=== PATIENT | male | born 1965 | race Caucasian/White ===

== ENCOUNTER 2017-05-19 15:12 | Inpatient (IN) ==
[2017-05-19] MEDS ORDERED: ASPIRIN 81 MG CHEWABLE TABLET PO ONE (15:40)
[2017-05-19] MEDS ORDERED: NITROGLYCERIN 0.4 MG SUBLINGUAL TABLET SL PRN ×3 (15:40→18:20)
[2017-05-19] MEDS ORDERED: SALINE FLUSH 10ml SYRINGE IVF PRN (15:40)
--- NOTE | 2017-05-19 15:45 | Emergency Department Report ---
Chest Pain HPI - General Chief Complaint: Chest Pain <Himanshu Godoy - 05/20/17 07:13> Stated Complaint: soa,pain on left side <Himanshu Godoy - 05/20/17 07:13> Time Seen by Provider: 05/19/17 15:35 <Himanshu Godoy - 05/20/17 07:13> Source: patient <Haley Rashid 05/19/17 15:47> Mode of arrival: wheelchair <GayMagdaHaley Dusty 05/19/17 15:47> Limitations: no limitations <MohindershavonHaley 05/19/17 15:47> - History of Present Illness HPI narrative: Pt presents with left substernal chest pain for the last 2 days. Pain develops with exertion and resolves at rest. Pain goes into left shoulder and pt becomes short of breath. Denies nausea or vomiting, diaphoresis, . <Haley Rashid 05/19/17 15:47> MD complaint: chest pain <GayHaley R 05/19/17 15:47> Occurred At: other <GayHaley Dusty 05/19/17 15:47> Onset (ago): day(s) <Haley Rashid 05/19/17 15:47> Duration: intermittent, now resolved <Haley Rashid 05/19/17 15:47> Onset: during exertion <Haley Rashid 05/19/17 15:47> Pain location: substernal, left chest <Haley Rashid 05/19/17 15:47> Severity: moderate <Haley Rashid 05/19/17 15:47> Quality: aching, heaviness <Haley Rashid 05/19/17 15:47> Pain radiation: LUE <Haley Rashid 05/19/17 15:47> Relieving factors: rest <Haley Rashid 05/19/17 15:47> Exacerbating factors: exertion <Haley Rashid 05/19/17 15:47> Associated symptoms: dyspnea <Haley Rashid 05/19/17 15:47> - Related Data Home Medications Medication Instructions Recorded Confirmed Aspirin [Aspir 81] 81 mg PO DAILY #30 tab 12/31/15 05/19/17 Enalapril Maleate 10 mg PO DAILY #0 tab 12/31/15 05/19/17 Insulin Glargine,Hum.rec.anlog 41 unit SQ AMI #0 12/31/15 05/19/17 [[place] Solostar] Insulin Aspart [NovoLOG] 13 unit SQ WB 05/19/17 05/19/17 Insulin Aspart [NovoLOG] 14 unit SQ WL 05/19/17 05/19/17 Insulin Aspart [NovoLOG] 16 unit SQ WS 05/19/17 05/19/17 Loratadine [Claritin] 10 mg PO DAILY 05/19/17 05/19/17 Pravastatin [Pravachol] 20 mg PO DAILY 05/19/17 05/19/17 <Himanshu Godoy Q - 05/20/17 07:13> Allergies Allergy/AdvReac Type Severity Reaction Status Date / Time insulin degludec Allergy Unknown HIVES Verified 05/19/17 15:24 Iodinated Contrast- Oral and Allergy Unknown RASH Verified 05/19/17 15:24 IV Dye sulfamethoxazole AdvReac rash/itchin Verified 05/19/17 15:24 [From Bactrim] g trimethoprim [From Bactrim] AdvReac rash/itchin Verified 05/19/17 15:24 g <Himanshu Godoy Q - 05/20/17 07:13> Review of Systems All systems: reviewed and negative except as stated <Haley Rashid - 15:47> Cardiovascular: Reports: as per HPI <Haley Rashid - 05/19/17 15:47> Respiratory: Reports: as per HPI <Haley Rashid - 05/19/17 15:47> Gastrointestinal: Reports: as per HPI <Haley Rashid - 05/19/17 15:47> [facility] Patient Stated Medical History Angina Yes Hypertension Yes Myocardial Infarction Yes Diabetes Mellitus Type 1 Yes Hx Benign Prostatic Yes: prostastitis Hyperplasia Other Infectious Yes: [facility] Medical History Non-STEMI (non-ST elevated myocardial infarction) (Acute Medical) Essential (primary) hypertension (Acute Medical) Type 2 diabetes mellitus without complications (Acute Medical) Mixed hyperlipidemia (Acute Medical) Type 1 diabetes (Chronic Medical) <JayneKate levyn Q - 05/20/17 07:13> Family History: Family History Mother HTN (hypertension) Father HTN (hypertension) <Himanshu Godoy - 05/20/17 07:13> - Social History Smoking status: Never smoker <Haley Rashid 05/19/17 15:47> Physical Exam - Limitations Limitations: no limitations <Haley Rashid 05/19/17 15:47> - General General appearance: alert, in no apparent distress <Haley Rashid 05/19 15:47> - Normal Exams: Head:: Normocephalic without trauma <Haley Rashid 05/19/17 15:47> Neck:: Full range of motion, without adenopathy <Haley Rashid 15:47> Chest/Respirations:: Clear all tatum, with good airflow, and symmetry bilaterally <Haley Rashid 05/19/17 15:47> Cardiovascular:: Regular rate and rhythm, without murmur or gallop, Pulses 2+ all extremities, capillary refill, <2 seconds all extremities <Haley Rashid 05/19/17 15:47> Abdomen:: Bowel sounds positive, soft, non-tender, non-distended <Haley Rashid 05/19/17 15:47> Musculoskeletal:: No tenderness, or deformity noted, good range of motion, all extremities <Haley Rashid 05/19/17 15:47> Integumentary:: No rashes <Haley Rashid 05/19/17 15:47> Neurological:: Patient is alert, and oriented, cranial nerves, motor/sensory/ cerebellar, exams w/o gross deficits <Haley Rashid 05/19/17 15:47> Psychiatric:: Patient exhibits, appropriate attention, emotion and affect < Haley Rashid 05/19/17 15:47> Course Vital Signs Temperature 98.3 F 05/19/17 15:24 Pulse Rate 86 05/19/17 15:24 Respiratory Rate 16 05/19/17 15:24 Blood Pressure 145/80 H 05/19/17 15:24 Pulse Oximetry 98 05/19/17 15:24 Temperature 98.0 F 05/20/17 04:00 Pulse Rate 90 05/20/17 04:00 Respiratory Rate 16 05/20/17 04:00 Blood Pressure 126/66 05/20/17 04:00 Pulse Oximetry 96 05/20/17 04:00 <JayneHimanshu Q - 05/20/17 07:13> Chest Pain - MDM Narrative Medical decision making narrative: Patient with elevated troponin. Contacted Dr. Craven, he will come and evaluate patient in the emergency room <JayneHimasnhu levy Q - 05/20/17 07:13> Lab, X ray, and EKG reviewed. Dr Lazo notified of findings pt to be an admission. Findings discussed with pt and his . Multiple questions answered. Pt currently verbalizes understanding <Haley Rashid - 05/19/17 16:49> - Differential Diagnosis Likely: stable angina, unstable angina pectoris, atypical chest pain, chest pain <Haley Rashid - 05/19/17 15:47> - Lab Data Attestation: I reviewed the patient's lab results. <Haley Rashid - 05/19 16:49> Result diagrams: 05/20/17 04:31 05/20/17 04:31 <Himanshu Godoy - 05/20/17 07:13> Lab Results 05/19/17 05/19/17 05/19/17 Range/Units 15:39 15:39 19:18 WBC 7.9 (4.5-11.0) T/MM3 RBC 4.42 L (4.50-5.90) M/MM3 Hgb 13.7 (13.5-17.5) GM/DL Hct 40.5 L (41-53) % MCV 91.6 (80-100) UM3 MCH 31.0 (26-34) UUG MCHC 33.8 (31-37) GM/DL RDW Std Deviation 39.0 (36.9-50.2) FL Plt Count 267 (130-400) T/MM3 MPV 8.8 L (9.4-12.4) UM3 Immature Gran % (Auto) 0.3 (0.0-0.5) % Neut % (Auto) 62.3 (33-66) % Lymph % (Auto) 26.4 (23-45) % [place] % (Auto) 8.6 (0-9.0) % Eos % (Auto) 2.1 (0-4) % Baso % (Auto) 0.3 (0-2) % Neut # (Auto) 4.9 (1.8-7.7) T/MM3 Lymph # (Auto) 2.1 (1-4.8) T/MM3 [place] # (Auto) 0.7 (0-0.8) T/MM3 Eos # (Auto) 0.2 (0-0.5) T/MM3 Baso # (Auto) 0.0 (0-0.2) T/MM3 Abs Immat Gran (auto) 0.02 (0.00-0.03) T/MM3 Neutrophils % (Manual) (33-66) % Band Neutrophils % (0-6) % Lymphocytes % (Manual) (23-45) % Monocytes % (Manual) (0-9.0) % Neutrophils # (Manual) (1.8-7.7) T/MM3 Band Neutrophils # T/MM3 Lymphocytes # (Manual) (1-4.8) T/MM3 Monocytes # (Manual) (0-0.8) T/MM3 RBC Morph Comment Turbidity < 20 (0-20) Sodium 142 (134-144) MEQ/L Potassium 4.3 (3.6-5) MEQ/L Chloride 105 (98-107) MEQ/L Carbon Dioxide 27 (22-30) MEQ/L Anion Gap 10 (5-15) MEQ/L BUN 20.0 (9-20) MG/DL Creatinine 0.8 (0.8-1.5) MG/DL GFR Calculation 101 BUN/Creatinine Ratio 25 (6-26) RATIO Glucose 234 H (75-110) MG/DL Glucometer 220 (65-110) mg/dL Calculated Osmolality 284 H (261-280) MOSM/KG Calcium 9.1 (8.4-10.2) MG/DL Icterus Index < 2 (0-7) Troponin I 0.164 H (0-0.12) ng/ml B-Natriuretic Peptide 123 (0-175) pg/mL Triglycerides (40-160) MG/DL Cholesterol (132-199) MG/DL LDL Cholesterol, Calc (66-159) VLDL Cholesterol (0-28) MG/DL HDL Cholesterol (40-60) MG/DL Cholesterol/HDL Ratio (0-5.0) RATIO Specimen Hemolysis < 15 (0-25) 05/19/17 05/20/17 05/20/17 Range/Units 21:35 04:31 04:31 WBC 14.7 H D (4.5-11.0) T/MM3 RBC 4.60 (4.50-5.90) M/MM3 Hgb 14.4 (13.5-17.5) GM/DL Hct 41.6 (41-53) % MCV 90.4 (80-100) UM3 MCH 31.3 (26-34) UUG MCHC 34.6 (31-37) GM/DL RDW Std Deviation 38.4 (36.9-50.2) FL Plt Count 297 (130-400) T/MM3 MPV 9.2 L (9.4-12.4) UM3 Immature Gran % (Auto) Not performed (0.0-0.5) % Neut % (Auto) Not performed (33-66) % Lymph % (Auto) Not performed (23-45) % [place] % (Auto) Not performed (0-9.0) % Eos % (Auto) Not performed (0-4) % Baso % (Auto) Not performed (0-2) % Neut # (Auto) Not performed (1.8-7.7) T/MM3 Lymph # (Auto) Not performed (1-4.8) T/MM3 [place] # (Auto) Not performed (0-0.8) T/MM3 Eos # (Auto) Not performed (0-0.5) T/MM3 Baso # (Auto) Not performed (0-0.2) T/MM3 Abs Immat Gran (auto) Not performed (0.00-0.03) T/MM3 Neutrophils % (Manual) 87.0 H (33-66) % Band Neutrophils % 5.0 (0-6) % Lymphocytes % (Manual) 4.0 L (23-45) % Monocytes % (Manual) 4.0 (0-9.0) % Neutrophils # (Manual) 12.8 H (1.8-7.7) T/MM3 Band Neutrophils # 0.7 T/MM3 Lymphocytes # (Manual) 0.6 L (1-4.8) T/MM3 Monocytes # (Manual) 0.6 (0-0.8) T/MM3 RBC Morph Comment Normal Turbidity < 20 (0-20) Sodium 140 (134-144) MEQ/L Potassium 4.3 (3.6-5) MEQ/L Chloride 106 (98-107) MEQ/L Carbon Dioxide 24 (22-30) MEQ/L Anion Gap 10 (5-15) MEQ/L BUN 16.0 (9-20) MG/DL Creatinine 0.7 L (0.8-1.5) MG/DL GFR Calculation 118 BUN/Creatinine Ratio 23 (6-26) RATIO Glucose 277 H (75-110) MG/DL Glucometer 196 (65-110) mg/dL Calculated Osmolality 280 (261-280) MOSM/KG Calcium 9.0 (8.4-10.2) MG/DL Icterus Index < 2 (0-7) Troponin I (0-0.12) ng/ml B-Natriuretic Peptide (0-175) pg/mL Triglycerides 44 (40-160) MG/DL Cholesterol 180 (132-199) MG/DL LDL Cholesterol, Calc 121.2 (66-159) VLDL Cholesterol 8.8 (0-28) MG/DL HDL Cholesterol 50 (40-60) MG/DL Cholesterol/HDL Ratio 3.6 (0-5.0) RATIO Specimen Hemolysis < 15 (0-25) <Himanshu Godoy Q - 05/20/17 07:13> Lab Results 05/19/17 05/19/17 05/19/17 Range/Units 15:39 15:39 19:18 WBC 7.9 (4.5-11.0) T/MM3 RBC 4.42 L (4.50-5.90) M/MM3 Hgb 13.7 (13.5-17.5) GM/DL Hct 40.5 L (41-53) % MCV 91.6 (80-100) UM3 MCH 31.0 (26-34) UUG MCHC 33.8 (31-37) GM/DL RDW Std Deviation 39.0 (36.9-50.2) FL Plt Count 267 (130-400) T/MM3 MPV 8.8 L (9.4-12.4) UM3 Immature Gran % (Auto) 0.3 (0.0-0.5) % Neut % (Auto) 62.3 (33-66) % Lymph % (Auto) 26.4 (23-45) % [place] % (Auto) 8.6 (0-9.0) % Eos % (Auto) 2.1 (0-4) % Baso % (Auto) 0.3 (0-2) % Neut # (Auto) 4.9 (1.8-7.7) T/MM3 Lymph # (Auto) 2.1 (1-4.8) T/MM3 [place] # (Auto) 0.7 (0-0.8) T/MM3 Eos # (Auto) 0.2 (0-0.5) T/MM3 Baso # (Auto) 0.0 (0-0.2) T/MM3 Abs Immat Gran (auto) 0.02 (0.00-0.03) T/MM3 Neutrophils % (Manual) (33-66) % Band Neutrophils % (0-6) % Lymphocytes % (Manual) (23-45) % Monocytes % (Manual) (0-9.0) % Neutrophils # (Manual) (1.8-7.7) T/MM3 Band Neutrophils # T/MM3 Lymphocytes # (Manual) (1-4.8) T/MM3 Monocytes # (Manual) (0-0.8) T/MM3 RBC Morph Comment Turbidity < 20 (0-20) Sodium 142 (134-144) MEQ/L Potassium 4.3 (3.6-5) MEQ/L Chloride 105 (98-107) MEQ/L Carbon Dioxide 27 (22-30) MEQ/L Anion Gap 10 (5-15) MEQ/L BUN 20.0 (9-20) MG/DL Creatinine 0.8 (0.8-1.5) MG/DL GFR Calculation 101 BUN/Creatinine Ratio 25 (6-26) RATIO Glucose 234 H (75-110) MG/DL Glucometer 220 (65-110) mg/dL Calculated Osmolality 284 H (261-280) MOSM/KG Calcium 9.1 (8.4-10.2) MG/DL Icterus Index < 2 (0-7) Troponin I 0.164 H (0-0.12) ng/ml B-Natriuretic Peptide 123 (0-175) pg/mL Triglycerides (40-160) MG/DL Cholesterol (132-199) MG/DL LDL Cholesterol, Calc (66-159) VLDL Cholesterol (0-28) MG/DL HDL Cholesterol (40-60) MG/DL Cholesterol/HDL Ratio (0-5.0) RATIO Specimen Hemolysis < 15 (0-25) 05/19/17 05/20/17 05/20/17 Range/Units 21:35 04:31 04:31 WBC 14.7 H D (4.5-11.0) T/MM3 RBC 4.60 (4.50-5.90) M/MM3 Hgb 14.4 (13.5-17.5) GM/DL Hct 41.6 (41-53) % MCV 90.4 (80-100) UM3 MCH 31.3 (26-34) UUG MCHC 34.6 (31-37) GM/DL RDW Std Deviation 38.4 (36.9-50.2) FL Plt Count 297 (130-400) T/MM3 MPV 9.2 L (9.4-12.4) UM3 Immature Gran % (Auto) Not performed (0.0-0.5) % Neut % (Auto) Not performed (33-66) % Lymph % (Auto) Not performed (23-45) % [place] % (Auto) Not performed (0-9.0) % Eos % (Auto) Not performed (0-4) % Baso % (Auto) Not performed (0-2) % Neut # (Auto) Not performed (1.8-7.7) T/MM3 Lymph # (Auto) Not performed (1-4.8) T/MM3 [place] # (Auto) Not performed (0-0.8) T/MM3 Eos # (Auto) Not performed (0-0.5) T/MM3 Baso # (Auto) Not performed (0-0.2) T/MM3 Abs Immat Gran (auto) Not performed (0.00-0.03) T/MM3 Neutrophils % (Manual) 87.0 H (33-66) % Band Neutrophils % 5.0 (0-6) % Lymphocytes % (Manual) 4.0 L (23-45) % Monocytes % (Manual) 4.0 (0-9.0) % Neutrophils # (Manual) 12.8 H (1.8-7.7) T/MM3 Band Neutrophils # 0.7 T/MM3 Lymphocytes # (Manual) 0.6 L (1-4.8) T/MM3 Monocytes # (Manual) 0.6 (0-0.8) T/MM3 RBC Morph Comment Normal Turbidity < 20 (0-20) Sodium 140 (134-144) MEQ/L Potassium 4.3 (3.6-5) MEQ/L Chloride 106 (98-107) MEQ/L Carbon Dioxide 24 (22-30) MEQ/L Anion Gap 10 (5-15) MEQ/L BUN 16.0 (9-20) MG/DL Creatinine 0.7 L (0.8-1.5) MG/DL GFR Calculation 118 BUN/Creatinine Ratio 23 (6-26) RATIO Glucose 277 H (75-110) MG/DL Glucometer 196 (65-110) mg/dL Calculated Osmolality 280 (261-280) MOSM/KG Calcium 9.0 (8.4-10.2) MG/DL Icterus Index < 2 (0-7) Troponin I (0-0.12) ng/ml B-Natriuretic Peptide (0-175) pg/mL Triglycerides 44 (40-160) MG/DL Cholesterol 180 (132-199) MG/DL LDL Cholesterol, Calc 121.2 (66-159) VLDL Cholesterol 8.8 (0-28) MG/DL HDL Cholesterol 50 (40-60) MG/DL Cholesterol/HDL Ratio 3.6 (0-5.0) RATIO Specimen Hemolysis < 15 (0-25) <Haley Rashid - 05/19/17 16:49> - Radiology Data Attestation: I reviewed the patient's radiology results. (per Dr Farrell) < Haley Rashid - 05/19/17 16:49> - EKG Data EKG #1 EKG attestation: Yes: I reviewed and interpreted this EKG. <Himanshu Godoy Q - 05/20/17 07:13> Yes: I reviewed and interpreted this EKG. <Haley Rashid 05/19/17 16:49> EKG shows normal: sinus rhythm <Haley Rashid 05/19/17 16:49> Rate: normal <Himanshu Godoy Q - 05/20/17 07:13> normal <Haley Rashid R - 05/19/17 16:49> Rhythm: NSR <JayneHimanshu Q - 05/20/17 07:13> NSR <Haley Rashid - 05/19/17 16:49> Robert/QRS: normal <JayneHimanshu 05/20/17 07:13> Interpretation: no acute changes <JayneHimanshu levy 05/20/17 07:13> Disposition Clinical Impression: Non-STEMI (non-ST elevated myocardial infarction) <Himanshu Godoy Q - 05/20/17 07:13> Disposition: 02 To [facility] [place] Acute Care <JayneHimanshu levy 05/20/17 07:13> Condition: Improved <JayneHimanshu 05/20/17 07:13> Prescriptions: No Action Enalapril Maleate 10 mg PO DAILY #0 tab Insulin Glargine,Hum.rec.anlog [[place] Solostar] 41 unit SQ AMI #0 Aspirin [Aspir 81] 81 mg PO DAILY #30 tab Insulin Aspart [NovoLOG] 13 unit SQ WB Loratadine [Claritin] 10 mg PO DAILY Insulin Aspart [NovoLOG] 16 unit SQ WS Insulin Aspart [NovoLOG] 14 unit SQ WL Pravastatin [Pravachol] 20 mg PO DAILY <Himanshu Godoy Q - 05/20/17 07:13> Time of Disposition: 16:49 <Haley Rashid - 05/19/17 16:49> - Seen By: midlevel and physician <Haley Rashid - 05/19/17 16:49>
--- OUTSIDE RECORDS SUMMARY | 2017-05-19 16:00 | External Medical Summary | Summary of Care ---
:1965 Author Name Deon Sánchez M.D. Address Unavailable Unavailable , Care Team Providers Name Role Phone Gonzalo Perkins Deon Unavailable Unavailable Mayela Barlow Unavailable Unavailable Functional Status Functional Status Health Issues Name Dates Details Functional status health issues are not documented Status: Cognitive Status Health Issues Name Dates Details Cognitive status health issues are not documented Status: Problems Name Dates Details BPPV (benign paroxysmal positional vertigo), right (386.11, H81.11) Status: Active Medications Name Dates Details Medication not documented Allergies and Adverse Reactions Name Dates Details Allergy history not documented Status: Procedures Procedure Dates Details History of Neuroplasty Decompression Median Nerve At Carpal Tunnel Procedures not documented Immunization Name Dates Details Immunizations not documented Family History Mother Name Dates Details Family history of hypertension (V17.49, Z82.49) Status: Active Father Name Dates Details Family history of hypertension (V17.49, Z82.49) Status: Active Social History Name Dates Details - Status: Smoking Status Name Dates Details Never smoker Vital Signs Date Test Result Details 30-Jan-2016 14:07 Temperature 98.3 f Status: Comments: Method: Heart Rate 95 /min Status: Comments: Location: ; Height 67.5 in Status: Weight 205 lb Status: Physical Findings 98 Status: Comments: O2 Saturation Body Mass Index Calculated 31.63 kg/m2 Status: Body Surface Area Calculated 2.05 m2 Status: Results Date Description Value Details Results not documented Plan of Care Name Dates Details Planned Observations Planned Goals not documented Instructions Name Dates Details Instructions not documented Encounters Appointment; Deon Sánchez M.D. On 30-Jan-2016 Encounter Diagnosis: Problem not documented 14:00
--- NOTE | 2017-05-19 16:15 | XRay Report ---
Indication: chest pain Procedure: XR chest 2V: Encounter: Initial Comparison: None Technique: PA and lateral radiographs of the chest were obtained. Findings: Lungs and airways: Normal lung volumes. No focal airspace consolidation. Normal pulmonary vasculature. Pleura: No pleural effusion or pneumothorax. Heart and mediastinum: The cardiomediastinal silhouette and great vessels are within normal limits. Osseous structures and soft tissues: No acute osseous abnormality is seen. Impression: No acute cardiopulmonary process. .
[2017-05-19] MEDS ORDERED: METHYLPREDNISOLONE SOD SUCC 125mg/2ml INJECTION IVP ONE (16:58)
[2017-05-19] MEDS ORDERED: DiphenhydrAMINE 50 MG/ML INJECTION IVP ONE (16:59)
[2017-05-19] MEDS ORDERED: DiphenhydrAMINE 50 MG/ML INJECTION ONE (17:05)
[2017-05-19] MEDS ORDERED: METHYLPREDNISOLONE SOD SUCC 125mg/2ml INJECTION ONE (17:05)
[2017-05-19] MEDS ORDERED: FentaNYL 100 MCG/2 ML INJECTION ONE (17:06)
[2017-05-19] MEDS ORDERED: MIDAZOLAM 2mg/2ml INJECTION ONE (17:06)
[2017-05-19] MEDS ORDERED: LIDOCAINE 1% (10mg/ml) 30ml SDV INJ ONE (17:06)
[2017-05-19] MEDS ORDERED: NS 1,000 ML ONE (17:15)
[2017-05-19] MEDS ORDERED: Verapamil 5 MG/2 ML VIAL ONE (17:26)
[2017-05-19] MEDS ORDERED: HEPARIN 1,000unit/ml INJECTION 10ml ONE (17:27)
[2017-05-19] MEDS ORDERED: NITROGLYCERIN 50MG INJECTION IV ONE (17:27)
--- NOTE | 2017-05-19 17:45 | Cardiology History & Physical ---
History of Present Illness Chief complaint: chest pain HPI: Lauri is a 52 year old male who presented to the ED with left substernal chest pain for the last 2 days. Pain develops with exertion and resolves at rest. Pain goes into left shoulder and he becomes short of breath. Denies nausea or vomiting, diaphoresis. Troponin resulted at 0.164, and EKG showed SR and was essentially normal. He was examined in the ED by Dr. Craven and it was felt that due to symptoms and elevated troponin we should proceed with left heart cath immediately. He denies recent illness, fever, cough, sore throat, dyspnea, palpitations, N/V/D, or dysuria. Review of Systems - Constitutional Constitutional: Absent: chills, fatigue, fever(s) - EENMT Eyes: Absent: change in vision Balance: Absent: vertigo Mouth/Throat: Absent: sore throat - Cardiovascular Cardiovascular: Present: chest pain. Absent: palpitations, syncope, dyspnea on exertion, orthopnea Rhythm: Absent: abnormal rhythm Vascular: Absent: pedal edema - Respiratory Respiratory: Absent: cough, dyspnea, dyspnea on exertion - Gastrointestinal Gastrointestinal: Absent: constipation, diarrhea, nausea, vomiting - Genitourinary Genitourinary: Absent: dysuria - Integumentary/Breasts Integumentary: Absent: rash - Neurological Neurological: Absent: dizziness - Endocrine Endocrine: Absent: palpitations PFSH Patient Stated Medical History Hypertension Yes Diabetes Mellitus Type 1 Yes Hx Benign Prostatic Yes: prostastitis Hyperplasia Other Infectious Yes: [facility] Medical History Non-STEMI (non-ST elevated myocardial infarction) (Acute Medical) Type 1 diabetes (Chronic Medical) Surgical History: none Family History: Family History Mother HTN (hypertension) Father HTN (hypertension) - Social History Smoking status: Never smoker Substance use type: does not use Alcohol intake frequency: does not drink Housing: house Household members: spouse Current occupational status: employed 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 Current residence: Apartment/Private Home Medications Home Medications Medication Instructions Recorded Confirmed Type Aspirin [Aspir 81] 81 mg PO DAILY #30 tab 12/31/15 05/19/17 History Enalapril Maleate 10 mg PO DAILY #0 tab 12/31/15 05/19/17 History Insulin Glargine,Hum.rec.anlog 41 unit SQ AMI #0 12/31/15 05/19/17 History [Tobipin Kuhn] Insulin Aspart [NovoLOG] 13 unit SQ WB 05/19/17 05/19/17 History Insulin Aspart [NovoLOG] 14 unit SQ WL 05/19/17 05/19/17 History Insulin Aspart [NovoLOG] 16 unit SQ WS 05/19/17 05/19/17 History Loratadine [Claritin] 10 mg PO DAILY 05/19/17 05/19/17 History Pravastatin [Pravachol] 20 mg PO DAILY 05/19/17 05/19/17 History Allergies Allergy/AdvReac Type Severity Reaction Status Date / Time insulin degludec Allergy Unknown HIVES Verified 05/19/17 15:24 Iodinated Contrast- Oral and Allergy Unknown RASH Verified 05/19/17 15:24 IV Dye sulfamethoxazole AdvReac rash/itchin Verified 05/19/17 15:24 [From Bactrim] g trimethoprim [From Bactrim] AdvReac rash/itchin Verified 05/19/17 15:24 g Exam Vital signs: Temperature 98.3 F 05/19/17 15:24 Pulse Rate 90 05/19/17 16:30 Respiratory Rate 18 05/19/17 16:30 Blood Pressure 147/83 H 05/19/17 16:30 Pulse Oximetry 100 05/19/17 16:30 - Constitutional no acute distress, well nourished, cooperative - Routine HEENT Exam Head: Present: normocephalic ENT: Present: mucous membranes moist - Routine Neck Exam Absent: JVD, carotid bruit - Routine Chest/Breast/Axilla Exam Chest wall: Absent: tenderness - Routine Respiratory Exam Present: CTA bilaterally. Absent: rales, wheezes - Routine Cardiovascular Exam Present: RRR, no murmur - Routine Abdominal Exam Present: soft, normoactive bowel sounds - Routine Extremities Exam Present: no edema - Routine Skin Exam Present: intact, dry, warm - Routine Neurological Exam Present: alert, oriented X3 - Routine Psychiatric Exam Present: normal affect, normal thought process Results 05/20/17 04:31 05/20/17 04:31 Cardiac Enzymes 05/19/17 Range/Units 15:39 Troponin I 0.164 H (0-0.12) ng/ml B-Natriuretic Peptide 123 (0-175) pg/mL Coagulation 05/19/17 Range/Units 15:39 B-Natriuretic Peptide 123 (0-175) pg/mL CBC 05/19/17 Range/Units 15:39 WBC 7.9 (4.5-11.0) T/MM3 RBC 4.42 L (4.50-5.90) M/MM3 Hgb 13.7 (13.5-17.5) GM/DL Hct 40.5 L (41-53) % Plt Count 267 (130-400) T/MM3 Neut # (Auto) 4.9 (1.8-7.7) T/MM3 Lymph # (Auto) 2.1 (1-4.8) T/MM3 [place] # (Auto) 0.7 (0-0.8) T/MM3 Eos # (Auto) 0.2 (0-0.5) T/MM3 Baso # (Auto) 0.0 (0-0.2) T/MM3 Comprehensive Metabolic Panel 05/19/17 Range/Units 15:39 Sodium 142 (134-144) MEQ/L Potassium 4.3 (3.6-5) MEQ/L Chloride 105 (98-107) MEQ/L Carbon Dioxide 27 (22-30) MEQ/L BUN 20.0 (9-20) MG/DL Creatinine 0.8 (0.8-1.5) MG/DL Glucose 234 H (75-110) MG/DL Calcium 9.1 (8.4-10.2) MG/DL Intake and Output 05/19/17 05/19/17 05/19/17 06:59 14:59 22:59 Other: Weight 211 lb 13.828 oz Patient Weight 05/20/17 06:59 Weight 211 lb 13.828 oz - Imaging and Cardiology Echo: pending Imaging & Cardiology Narrative: Date of Exam: 05/19/17 Ordering Provider: Haley Rashid APRN Type of Exam(s): XR chest 2V Reason for Exam(s): chest pain Indication: chest pain Procedure: XR chest 2V: Encounter: Initial Comparison: None Technique: PA and lateral radiographs of the chest were obtained. Findings: Lungs and airways: Normal lung volumes. No focal airspace consolidation. Normal pulmonary vasculature. Pleura: No pleural effusion or pneumothorax. Heart and mediastinum: The cardiomediastinal silhouette and great vessels are within normal limits. Osseous structures and soft tissues: No acute osseous abnormality is seen. Impression: No acute cardiopulmonary process. 05/19/17 17:47 EKG interpretations - EKG EKG results cardiology: WNL EKG shows: sinus rhythm Hospital Course This is a general summary of the patient's hospital course. For more details refer to the complete medical record. Time spent with patient: 25 - 35 minutes Assessment and Plan - Attestation Attestation Narrative: 05/20/17 14:38 Recommendation After examining the patient I agree with the above assessment. I am involved in the formulation of the patient's plan of care. - Assessment and Plan (1) Non-STEMI (non-ST elevated myocardial infarction) Current visit: Yes Status: Acute Chest pain last 2 days, worse with exertion, improved with rest - Initial troponin 0.164 - EKG essentially normal - NPO for left heart cath now Stents x 2 to RCA. - Aspirin and Brilinta for dual antiplatelet therapy - Metoprolol 25mg po BID - Change enalapril to lisinopril - Change pravastatin to atorvastatin (2) Essential (primary) hypertension Current visit: Yes Status: Acute Change enalapril to lisinopril (3) Type 2 diabetes mellitus without complications Current visit: Yes Status: Acute Continue home insulin and BGMs as done at home (4) Mixed hyperlipidemia Current visit: Yes Status: Acute - Change pravastatin to atorvastatin - Assessment and Plan 05/19/17 Chest pain last 2 days, worse with exertion, improved with rest - Initial troponin 0.164 - EKG essentially normal - NPO for left heart cath now Stents x 2 to RCA. - Aspirin and Brilinta for dual antiplatelet therapy - Metoprolol 25mg po BID - Change enalapril to lisinopril - Change pravastatin to atorvastatin
[2017-05-19] MEDS ORDERED: TICAGRELOR 90 MG TABLET ONE (17:49)
[2017-05-19] MEDS ORDERED: LORazepam 0.5 MG TABLET PO PRN ×2 (18:20)
[2017-05-19] MEDS ORDERED: MAG-AL + SIM ORAL LIQUID 30ml PO PRN ×2 (18:20)
[2017-05-19] MEDS ORDERED: PROMETHAZINE 25 MG INJECTION IVP PRN ×2 (18:20)
[2017-05-19] MEDS ORDERED: HYDROCODONE/APAP 5mg/325mg TABLET PO PRN (18:20)
[2017-05-19] MEDS ORDERED: MORPHINE SULFATE 4mg INJECTION IVP PRN ×4 (18:20)
[2017-05-19] MEDS ORDERED: ATROPINE 1 MG/ML INJECTION IVP PRN ×2 (18:20)
[2017-05-19] MEDS ORDERED: HYDROCODONE/APAP 7.5 MG/325 MG TABLET PO PRN (18:20)
[2017-05-19] MEDS ORDERED: Bisacodyl EC TAB 5 MG TABLET PO PRN ×2 (18:20)
[2017-05-19] MEDS ORDERED: METOCLOPRAMIDE 10mg/2ml INJECTION IVP PRN ×2 (18:20)
[2017-05-19] MEDS ORDERED: ACETAMINOPHEN 325 MG TABLET PO PRN (18:20)
[2017-05-19] MEDS ORDERED: BISACODYL 10 MG SUPPOSITORY RECTALLY PRN ×2 (18:20)
[2017-05-19] MEDS ORDERED: ONDANSETRON 4 MG/2 ML INJECTION IVP PRN ×2 (18:20)
[2017-05-19 18:37] VITALS: BMI 32.0
[2017-05-19] MEDS: INSULIN ASPART 100unit/ml INJECTION SQ SCH (19:30)
[2017-05-19] MEDS: ATORVASTATIN 40 MG TABLET PO SCH (20:38)
[2017-05-20] MEDS ORDERED: TICAGRELOR 90 MG TABLET PO SCH (05:59)
[2017-05-20] MEDS: TICAGRELOR 90 MG TABLET PO SCH ×2 (06:34→17:50)
[2017-05-20] MEDS: LORATADINE 10 MG TABLET PO SCH (06:34)
[2017-05-20] MEDS: INSULIN ASPART 100unit/ml INJECTION SQ SCH ×3 (07:47→17:31)
[2017-05-20] MEDS ORDERED: INFLUENZA VAC. INJ. ADMIN CHARGE INJ ONE (08:35)
[2017-05-20] MEDS ORDERED: ASPIRIN *EC* 81 MG TABLET PO SCH (09:00)
[2017-05-20] MEDS: LISINOPRIL 20 MG TABLET PO SCH (09:17)
[2017-05-20] MEDS: ASPIRIN *EC* 81 MG TABLET PO SCH (09:17)
--- NOTE | 2017-05-20 10:18 | Cardiac Catheterization Report ---
DATE OF PROCEDURE May 19, 2017 The patient is a 52-year-old gentleman who was admitted with unstable angina/non -ST-elevation myocardial infarction and was referred for further evaluation by cardiac catheterization and possible intervention. Informed consent was obtained after explaining the procedure and the potential risks to the patient who agreed to proceed with the procedure. PROCEDURE 1. Left heart catheterization. 2. Coronary angiography. 3. Left ventriculography. 4. Primary stent of mid and proximal RCA using 3.0 x 8 and 3.5 x 18 drug- eluting Resolute Kb stents. 5. Right femoral angiography to visualize the vessel for closure device. 6. Successful Mynx deployment for hemostasis. TECHNIQUE He was prepped and draped in the usual sterile techniques. Conscious sedation was performed using Versed and fentanyl. 1% lidocaine was used for local anesthesia. Using modified Seldinger technique, arterial access was obtained into the right radial artery with placement of a 6-Polish arterial sheath. 3000 units of heparin, 300 mcg of nitroglycerin and 2.5 mg of verapamil were given through the arterial sheath. LEFT VENTRICULOGRAPHY Left ventriculography in single-plane CAUSEY shallow projection showed normal LV systolic function with ejection fraction of about 60% with no mitral regurgitation or gradient across the aortic valve. LVEDP was about 14. CORONARY ANGIOGRAPHY We were not able to engage into the left main through the right radial sheath, however we were able to engage into the right coronary artery which showed subtotal occlusion in mid segment and about 70% proximal stenosis. At the bifurcation of the PDA and posterolateral arteries there was about 80% stenosis extending into the posterolateral artery. Posterolateral artery was a small caliber vessel of about 2 mm. Since we were not able to engage into the ostium of the left main, therefore we changed our approach to femoral approach. 1% lidocaine was used for local anesthesia. Using modified Seldinger technique, arterial access was obtained into the right femoral artery with placement of a 6-Polish arterial sheath. Left coronary angiography showed left main free of significant lesions. Left anterior descending artery had irregularities with no stenosis greater than 30% . Diagonal also had irregularities of up to about 30% stenosis. Left circumflex artery mainly consisted of a large marginal which had about 90% proximal stenosis. After reviewing the images we decided to proceed with intervention on RCA. Additional 5000 units of heparin was administered. 180 mg of Brilinta was given orally. A 6-Polish AL-1 with side holes was advanced to the ostium of the right coronary artery. A Whisper wire was used to cross the lesion into the distal RCA. A 3.0 x 8 mm drug-eluting Resolute [place] stent was delivered to the mid RCA and deployed by inflating the balloon to 16 atmospheres. Next, we used a 3.5 x 18 drug-eluting Resolute [place] stent which was delivered to the proximal RCA and deployed by inflating the balloon to 18 atmospheres. Next, angiogram showed excellent results with no residual stenosis. We did not wish to proceed with any further intervention at the bifurcation into the posterolateral artery due to small caliber nature of the vessel. The patient tolerated the procedure well with no complications. Right femoral angiography showed patent common femoral, proximal SFA and profunda and therefore Mynx was used for hemostasis. IMPRESSION 1. Normal LV systolic function with ejection fraction of 60%. 2. Coronary artery disease as described above. 3. Successful primary stent of mid and proximal RCA using 3.0 x 8 and 3.5 x 18 drug-eluting Resolute Kb stents. 4. Successful Mynx deployment for hemostasis. PLAN Will continue dual antiplatelet therapy at least for year and continue risk modification. One might consider obtuse marginal percutaneous intervention in the future using femoral approach. ASHIAD
[2017-05-20] MEDS ORDERED: PNEUMOCOCCAL VAC ADMIN CHARGE INJ ONE (14:00)
[2017-05-20] MEDS ORDERED: INFLUENZA VAC QIV 2017-18 (Fluarix*)(>=3yo) 0.5ml IM ONE (14:10)
[2017-05-20] MEDS ORDERED: PNEUMOCOCCAL 13 VACCINE 0.5ml INJECTION IM ONE (14:10)
[2017-05-20] MEDS: INSULIN ASPART 100unit/ml INJECTION SQ PRN ×2 (14:20→20:40)
[2017-05-20] MEDS ORDERED: INSULIN ASPART 100unit/ml INJECTION SQ SCH ×2 (15:45→17:30)
[2017-05-20] MEDS: ACETAMINOPHEN 325 MG TABLET PO PRN (16:54)
--- NOTE | 2017-05-20 17:22 | Cardiology Progress Note ---
<Glenis Moncada - Last Filed: 05/21/17 10:14> Subjective Principal diagnosis: NSTEMI Interval history: Kavon is seen in follow up for NSTEMI. He is seen in his room where he is eating breakfast. He reports inability to sleep much last night and some left sided chest pain early this morning. He is concerned with his elevated blood sugars as well. He denies dyspnea. Exam Vital signs: Temperature 98.1 F 05/20/17 16:19 Pulse Rate 91 05/20/17 16:29 Respiratory Rate 14 05/20/17 16:19 Blood Pressure 142/73 H 05/20/17 16:19 Pulse Oximetry 96 05/20/17 16:19 - Constitutional no acute distress, well nourished, cooperative - Routine HEENT Exam Head: Present: normocephalic ENT: Present: mucous membranes moist - Routine Neck Exam Absent: JVD, carotid bruit - Routine Chest/Breast/Axilla Exam Chest wall: Absent: tenderness - Routine Respiratory Exam Present: CTA bilaterally. Absent: rales, wheezes - Routine Cardiovascular Exam Present: RRR, no murmur. Absent: JVD - Routine Abdominal Exam Present: soft, normoactive bowel sounds - Routine Extremities Exam Present: no edema - Routine Skin Exam Present: intact, dry, warm - Routine Neurological Exam Present: alert, oriented X3 - Routine Psychiatric Exam Present: normal affect, normal thought process - Additional findings Additional findings: Acetaminophen (Tylenol) 325 - 650 mg PO Q5H PRN PRN Reason: Pain Last Admin: 05/20/17 16:54 Dose: 325 mg Hydrocodone Bitart/Acetaminophen ([place]bury 7.5/325) 1 - 2 tab PO Q5H PRN PRN Reason: Pain Al Hydroxide/Mg Hydroxide (Maalox Plus) 30 ml PO Q3H PRN PRN Reason: Indigestion Aspirin (Ecotrin) 81 mg PO DAILY [facility] Last Admin: 05/20/17 09:17 Dose: 81 mg Atorvastatin Calcium (Lipitor) 40 mg PO HS [facility] Last Admin: 05/19/17 20:38 Dose: 40 mg Atropine Sulfate (Atropine) 0.5 mg IVP Q5M PRN PRN Reason: Bradycardia Bisacodyl (Dulcolax) 5 - 10 mg PO DAILY PRN PRN Reason: Constipation Bisacodyl (Dulcolax) 10 mg RECTALLY DAILY PRN PRN Reason: Constipation Insulin Aspart (Novolog) 14 unit SQ WL [facility] Last Admin: 05/20/17 11:42 Dose: 14 unit Insulin Aspart (Novolog) 16 unit SQ WS [facility] Last Admin: 05/19/17 19:30 Dose: 16 unit Insulin Aspart (Novolog) 13 unit SQ WB [facility] Last Admin: 05/20/17 07:47 Dose: 13 unit Insulin Aspart (Novolog) 0 unit SQ SS PRN; Protocol PRN Reason: Hyperglycemia Last Admin: 05/20/17 14:20 Dose: 2 unit Lisinopril (Prinivil) 20 mg PO DAILY [facility] Last Admin: 05/20/17 09:17 Dose: 20 mg Loratadine (Claritin) 10 mg PO ACB [facility] Last Admin: 05/20/17 06:34 Dose: 10 mg Lorazepam (Ativan) 0.5 - 1 mg PO Q4H PRN PRN Reason: Anxiety Lorazepam (Ativan Inj) 0.5 - 1 mg IVP Q4H PRN PRN Reason: Anxiety Magnesium Hydroxide (Mom) 30 ml PO DAILY PRN PRN Reason: Constipation Metoclopramide HCl (Reglan) 5 - 10 mg IVP Q6H PRN PRN Reason: Nausea &/or vomiting Metoprolol Tartrate (Lopressor) 25 mg PO BIDWM [facility] Last Admin: 05/20/17 09:17 Dose: 25 mg Morphine Sulfate (Morphine Sulfate Inj) 2 - 4 mg IVP Q2H PRN PRN Reason: Pain Stop: 05/20/17 18:19 Morphine Sulfate (Morphine Sulfate Inj) 2 - 4 mg IVP Q5M PRN PRN Reason: Angina Nitroglycerin (Nitrostat) 0.4 mg SL Q5MIN3 PRN PRN Reason: Chest pain Last Admin: 05/19/17 15:45 Dose: 0.4 mg Nitroglycerin (Nitrostat) 0.4 mg SL Q5M PRN PRN Reason: Angina Non-Formulary Medication (Insulin Glargine,Hum.Rec.Anlog [Toujeo Solostar]) 41 unit PO AMI [facility] Last Admin: 05/20/17 07:40 Dose: Not Given Ondansetron HCl (Zofran) 4 mg IVP Q6H PRN PRN Reason: Nausea &/or vomiting Promethazine HCl (Phenergan Inj) 12.5 - 25 mg IVP Q6H PRN PRN Reason: Nausea &/or vomiting Sodium Chloride (Iv Flush) 10 - 80 ml IVF PRN PRN PRN Reason: Flushing Last Admin: 05/19/17 15:43 Dose: 10 ml Ticagrelor (Brilinta) 90 mg PO Q12H [facility] Last Admin: 05/20/17 06:34 Dose: 90 mg Results 05/21/17 08:27 05/21/17 08:27 Cardiac Enzymes 05/20/17 Range/Units 16:04 Troponin I 0.504 H (0-0.12) ng/ml Laboratory Results - last 24 hr 05/19/17 05/19/17 05/20/17 19:18 21:35 04:31 WBC 14.7 H D RBC 4.60 Hgb 14.4 Hct 41.6 MCV 90.4 MCH 31.3 MCHC 34.6 RDW Std Deviation 38.4 Plt Count 297 MPV 9.2 L Immature Gran % (Auto) Not performed Neut % (Auto) Not performed Lymph % (Auto) Not performed [place] % (Auto) Not performed Eos % (Auto) Not performed Baso % (Auto) Not performed Neut # (Auto) Not performed Lymph # (Auto) Not performed [place] # (Auto) Not performed Eos # (Auto) Not performed Baso # (Auto) Not performed Abs Immat Gran (auto) Not performed Neutrophils % (Manual) 87.0 H Band Neutrophils % 5.0 Lymphocytes % (Manual) 4.0 L Monocytes % (Manual) 4.0 Neutrophils # (Manual) 12.8 H Band Neutrophils # 0.7 Lymphocytes # (Manual) 0.6 L Monocytes # (Manual) 0.6 RBC Morph Comment Normal Turbidity Sodium Potassium Chloride Carbon Dioxide Anion Gap BUN Creatinine GFR Calculation BUN/Creatinine Ratio Glucose Glucometer 220 196 Calculated Osmolality Calcium Icterus Index Troponin I Triglycerides Cholesterol LDL Cholesterol, Calc VLDL Cholesterol HDL Cholesterol Cholesterol/HDL Ratio Specimen Hemolysis 05/20/17 05/20/17 05/20/17 04:31 04:31 09:58 WBC RBC Hgb Hct MCV MCH MCHC RDW Std Deviation Plt Count MPV Immature Gran % (Auto) Neut % (Auto) Lymph % (Auto) [place] % (Auto) Eos % (Auto) Baso % (Auto) Neut # (Auto) Lymph # (Auto) [place] # (Auto) Eos # (Auto) Baso # (Auto) Abs Immat Gran (auto) Neutrophils % (Manual) Band Neutrophils % Lymphocytes % (Manual) Monocytes % (Manual) Neutrophils # (Manual) Band Neutrophils # Lymphocytes # (Manual) Monocytes # (Manual) RBC Morph Comment Turbidity < 20 Sodium 140 Potassium 4.3 Chloride 106 Carbon Dioxide 24 Anion Gap 10 BUN 16.0 Creatinine 0.7 L GFR Calculation 118 BUN/Creatinine Ratio 23 Glucose 277 H Glucometer Calculated Osmolality 280 Calcium 9.0 Icterus Index < 2 Troponin I 0.402 H D 0.451 H Triglycerides 44 Cholesterol 180 LDL Cholesterol, Calc 121.2 VLDL Cholesterol 8.8 HDL Cholesterol 50 Cholesterol/HDL Ratio 3.6 Specimen Hemolysis < 15 < 15 < 15 05/20/17 05/20/17 05/20/17 10:23 14:06 15:12 WBC RBC Hgb Hct MCV MCH MCHC RDW Std Deviation Plt Count MPV Immature Gran % (Auto) Neut % (Auto) Lymph % (Auto) [place] % (Auto) Eos % (Auto) Baso % (Auto) Neut # (Auto) Lymph # (Auto) [place] # (Auto) Eos # (Auto) Baso # (Auto) Abs Immat Gran (auto) Neutrophils % (Manual) Band Neutrophils % Lymphocytes % (Manual) Monocytes % (Manual) Neutrophils # (Manual) Band Neutrophils # Lymphocytes # (Manual) Monocytes # (Manual) RBC Morph Comment Turbidity Sodium Potassium Chloride Carbon Dioxide Anion Gap BUN Creatinine GFR Calculation BUN/Creatinine Ratio Glucose Glucometer 262 199 262 Calculated Osmolality Calcium Icterus Index Troponin I Triglycerides Cholesterol LDL Cholesterol, Calc VLDL Cholesterol HDL Cholesterol Cholesterol/HDL Ratio Specimen Hemolysis 05/20/17 05/20/17 16:04 16:24 WBC RBC Hgb Hct MCV MCH MCHC RDW Std Deviation Plt Count MPV Immature Gran % (Auto) Neut % (Auto) Lymph % (Auto) [place] % (Auto) Eos % (Auto) Baso % (Auto) Neut # (Auto) Lymph # (Auto) [place] # (Auto) Eos # (Auto) Baso # (Auto) Abs Immat Gran (auto) Neutrophils % (Manual) Band Neutrophils % Lymphocytes % (Manual) Monocytes % (Manual) Neutrophils # (Manual) Band Neutrophils # Lymphocytes # (Manual) Monocytes # (Manual) RBC Morph Comment Turbidity Sodium Potassium Chloride Carbon Dioxide Anion Gap BUN Creatinine GFR Calculation BUN/Creatinine Ratio Glucose Glucometer 278 Calculated Osmolality Calcium Icterus Index Troponin I 0.504 H Triglycerides Cholesterol LDL Cholesterol, Calc VLDL Cholesterol HDL Cholesterol Cholesterol/HDL Ratio Specimen Hemolysis < 15 - Imaging and Cardiology Echo: pending Imaging & Cardiology Narrative: Date of Exam: 05/19/17 Ordering Provider: Haley Rashid APRN Type of Exam(s): XR chest 2V Reason for Exam(s): chest pain Indication: chest pain Procedure: XR chest 2V: Encounter: Initial Comparison: None Technique: PA and lateral radiographs of the chest were obtained. Findings: Lungs and airways: Normal lung volumes. No focal airspace consolidation. Normal pulmonary vasculature. Pleura: No pleural effusion or pneumothorax. Heart and mediastinum: The cardiomediastinal silhouette and great vessels are within normal limits. Osseous structures and soft tissues: No acute osseous abnormality is seen. Impression: No acute cardiopulmonary process. 05/20/17 17:22 05/20/17 17:22 Date of Exam: 05/19/17 Type of Exam(s): CA heart cath LT DATE OF PROCEDURE May 19, 2017 The patient is a 52-year-old gentleman who was admitted with unstable angina/non -ST-elevation myocardial infarction and was referred for further evaluation by cardiac catheterization and possible intervention. Informed consent was obtained after explaining the procedure and the potential risks to the patient who agreed to proceed with the procedure. PROCEDURE 1. Left heart catheterization. 2. Coronary angiography. 3. Left ventriculography. 4. Primary stent of mid and proximal RCA using 3.0 x 8 and 3.5 x 18 drug- eluting Resolute Ralph stents. 5. Right femoral angiography to visualize the vessel for closure device. 6. Successful Mynx deployment for hemostasis. TECHNIQUE He was prepped and draped in the usual sterile techniques. Conscious sedation was performed using Versed and fentanyl. 1% lidocaine was used for local anesthesia. Using modified Seldinger technique, arterial access was obtained into the right radial artery with placement of a 6-Austrian arterial sheath. 3000 units of heparin, 300 mcg of nitroglycerin and 2.5 mg of verapamil were given through the arterial sheath. LEFT VENTRICULOGRAPHY Left ventriculography in single-plane CAUSEY shallow projection showed normal LV systolic function with ejection fraction of about 60% with no mitral regurgitation or gradient across the aortic valve. LVEDP was about 14. CORONARY ANGIOGRAPHY We were not able to engage into the left main through the right radial sheath, however we were able to engage into the right coronary artery which showed subtotal occlusion in mid segment and about 70% proximal stenosis. At the bifurcation of the PDA and posterolateral arteries there was about 80% stenosis extending into the posterolateral artery. Posterolateral artery was a small caliber vessel of about 2 mm. Since we were not able to engage into the ostium of the left main, therefore we changed our approach to femoral approach. 1% lidocaine was used for local anesthesia. Using modified Seldinger technique, arterial access was obtained into the right femoral artery with placement of a 6-Austrian arterial sheath. Left coronary angiography showed left main free of significant lesions. Left anterior descending artery had irregularities with no stenosis greater than 30% . Diagonal also had irregularities of up to about 30% stenosis. Left circumflex artery mainly consisted of a large marginal which had about 90% proximal stenosis. After reviewing the images we decided to proceed with intervention on RCA. Additional 5000 units of heparin was administered. 180 mg of Brilinta was given orally. A 6-Austrian AL-1 with side holes was advanced to the ostium of the right coronary artery. A Whisper wire was used to cross the lesion into the distal RCA. A 3.0 x 8 mm drug-eluting Resolute Ralph stent was delivered to the mid RCA and deployed by inflating the balloon to 16 atmospheres. Next, we used a 3.5 x 18 drug-eluting Resolute Ralph stent which was delivered to the proximal RCA and deployed by inflating the balloon to 18 atmospheres. Next, angiogram showed excellent results with no residual stenosis. We did not wish to proceed with any further intervention at the bifurcation into the posterolateral artery due to small caliber nature of the vessel. The patient tolerated the procedure well with no complications. Right femoral angiography showed patent common femoral, proximal SFA and profunda and therefore Mynx was used for hemostasis. IMPRESSION 1. Normal LV systolic function with ejection fraction of 60%. 2. Coronary artery disease as described above. 3. Successful primary stent of mid and proximal RCA using 3.0 x 8 and 3.5 x 18 drug-eluting Resolute Kb stents. 4. Successful Mynx deployment for hemostasis. PLAN Will continue dual antiplatelet therapy at least for year and continue risk modification. One might consider obtuse marginal percutaneous intervention in the future using femoral approach. - EKG Interpretation EKG: WNL, sinus rhythm Assessment and Plan - Assessment and Plan (1) Non-STEMI (non-ST elevated myocardial infarction) Status: Acute Continue to monitor cardiac telemetry and trend serial troponin, still trending upwards. (2) Essential (primary) hypertension Status: Acute (3) Type 2 diabetes mellitus without complications Status: Acute Consult hospitalist for their recommendations regarding hyperglycemia, We appreciate your assistance. (4) Mixed hyperlipidemia Status: Acute - Assessment and Plan 05/19/17 Chest pain last 2 days, worse with exertion, improved with rest - Initial troponin 0.164 - EKG essentially normal - NPO for left heart cath now Stents x 2 to RCA. - Aspirin and Brilinta for dual antiplatelet therapy - Metoprolol 25mg po BID - Change enalapril to lisinopril - Change pravastatin to atorvastatin 05/20/17 Continue to monitor cardiac telemetry and trend serial troponin, still trending upwards. Consult hospitalist for their recommendations regarding hyperglycemia, We appreciate your assistance. Hospital Course Summary Disclaimer: The visit summary below is not to be considered part of the above Progress Note. <Rafi Craven - Last Filed: 05/22/17 12:02> Exam Vital signs: Temperature 97.4 F 05/21/17 12:25 Pulse Rate 78 05/21/17 12:25 Respiratory Rate 18 05/21/17 12:25 Blood Pressure 114/72 05/21/17 12:25 Pulse Oximetry 97 05/21/17 12:25 Results 05/21/17 08:27 05/21/17 08:27 Assessment and Plan - Assessment and Plan (1) Non-STEMI (non-ST elevated myocardial infarction) Status: Acute (2) Essential (primary) hypertension Status: Acute (3) Type 2 diabetes mellitus without complications Status: Acute (4) Mixed hyperlipidemia Status: Acute - Attestation Attestation Narrative: 05/22/17 12:02 Recommendation After examining the patient I agree with the above assessment. I am involved in the formulation of the patient's plan of care. Hospital Course Summary Disclaimer: The visit summary below is not to be considered part of the above Progress Note.
--- NOTE | 2017-05-20 17:36 | Consult Note ---
Consult Information - Data of Consult Consult date: 05/20/17 Requesting Physician: Rafi Craven MD Primary Care Provider: Genevieve Johnston APRN Family Provider: Genevieve Johnston APRN - Consult Narrative Reason for consult: hyperglycemia History of present illness: Patient is a very pleasant 52-year-old male who has had type 1 diabetes since the age of 9. He also has history of hypertension and hyperlipidemia. He developed chest pain 2 days ago that was associated with some left arm pain. He presented to the emergency room and was found to have an elevated troponin and EKG showed sinus rhythm. He was thought to have a non-ST elevation IL. He underwent heart catheterization last night with 2 stents placed. He has history of allergy to iodine and was given Benadryl and IV Solu- Medrol 125 mg last evening. This morning, blood sugars have been elevated. He states usually his blood sugars are well controlled. Blood sugars today and then the 200 range despite receiving his usual long-acting insulin as well has his usual dose of short-acting insulin with sliding scale insulin. He states that he is not taking as much of the short acting insulin here in the hospital as he would at home if his blood sugars were elevated. He tried to limit the size of his lunch this afternoon to help control his blood sugars. He's had some mild nausea but he thinks it's because he is hungry. He also had a stabbing headache above the right eye that only lasted a few seconds that was associated with some right eye blurring. While I was in the room he had another episode of very short lasting right sided frontal headache lasting a few seconds again but no associated blurriness of his eye. He states that prior to developing the chest discomfort 2 days ago he was feeling well. He had some mild chest discomfort earlier today but that has resolved. [facility] Medical History Non-STEMI (non-ST elevated myocardial infarction) (Acute Medical) Essential (primary) hypertension (Acute Medical) Type 2 diabetes mellitus without complications (Acute Medical) Mixed hyperlipidemia (Acute Medical) Type 1 diabetes (Chronic Medical) Surgical History: Bilateral carpal tunnel surgery. Heart catheterization with stent placements 2 on 05/19/2017 Family History: Family History Mother HTN (hypertension) Father HTN (hypertension) - Social History Smoking status: Never smoker Current residence: Apartment/Private Home Review of Systems All systems PM: 10-point ROS was reviewed, no additional remarkable complaints except (comprehensive review of systems is negative other than the above in history of present illness) Medications Home Medications Medication Instructions Recorded Confirmed Type Aspirin [Aspir 81] 81 mg PO DAILY #30 tab 12/31/15 05/19/17 History Enalapril Maleate 10 mg PO DAILY #0 tab 12/31/15 05/19/17 History Insulin Glargine,Hum.rec.anlog 41 unit SQ AMI #0 12/31/15 05/19/17 History [Toujeo Solostar] Insulin Aspart [NovoLOG] 13 unit SQ WB 05/19/17 05/19/17 History Insulin Aspart [NovoLOG] 14 unit SQ WL 05/19/17 05/19/17 History Insulin Aspart [NovoLOG] 16 unit SQ WS 05/19/17 05/19/17 History Loratadine [Claritin] 10 mg PO DAILY 05/19/17 05/19/17 History Pravastatin [Pravachol] 20 mg PO DAILY 05/19/17 05/19/17 History Allergies Allergy/AdvReac Type Severity Reaction Status Date / Time insulin degludec Allergy Unknown HIVES Verified 05/19/17 15:24 Iodinated Contrast- Oral and Allergy Unknown RASH Verified 05/19/17 15:24 IV Dye sulfamethoxazole AdvReac rash/itchin Verified 05/19/17 15:24 [From Bactrim] g trimethoprim [From Bactrim] AdvReac rash/itchin Verified 05/19/17 15:24 g Exam Vital Signs: Temperature 98.1 F 05/20/17 16:19 Pulse Rate 91 05/20/17 16:29 Respiratory Rate 14 05/20/17 16:19 Blood Pressure 142/73 H 05/20/17 16:19 Pulse Oximetry 96 05/20/17 16:19 Comments: GEN-alert, oriented, no acute distress HEENT-sclera anicteric, pupils equal, oropharynx is moist NECK-supple, no lymphadenopathy CV-regular rate and rhythm, no murmur CHEST-clear to auscultation bilaterally ABD-soft, nontender with positive bowel sounds -no Silva EXT-no edema NEURO-no focal deficits SKIN-warm and dry and without rashes Results - Labs CBC & Chem 7: 05/20/17 04:31 05/20/17 04:31 Labs: Laboratory Tests 05/19/17 05/20/17 05/20/17 15:39 04:31 09:58 Troponin I 0.164 H 0.402 H D 0.451 H 05/20/17 16:04 Troponin I 0.504 H Laboratory Tests 05/19/17 05/19/17 05/20/17 19:18 21:35 10:23 Glucometer 220 196 262 05/20/17 05/20/17 05/20/17 14:06 15:12 16:24 Glucometer 199 262 278 Assessment and Plan (1) Type 1 diabetes Current visit: Yes Status: Acute (2) Steroid-induced hyperglycemia Current visit: Yes Status: Acute Assessment and Plan: Impression Type 1 diabetes-well controlled at home per patient Hyperglycemia since admission-likely secondary to stress and Solu-Medrol given last night for history of iodine allergy Non-ST elevation IL with mild continuing increase in troponin Hypertension-fair control History of hyperlipidemia Plan Continue the patient's usual home Trujeo dose-he did give himself 41 units this morning which is his usual dose Continue NovoLog with meals. Will give additional insulin if blood sugars are elevated. Blood sugar currently is 238. We'll give 18 units of NovoLog with supper tonight and recheck blood sugar at at bedtime. Hopefully blood sugar will improve with additional insulin and off of Solu- Medrol. I did call and talk with the patient's nurse to determine if long-acting insulin was given this morning. I also asked her to call the [facility] nurse to determine if Solu-Medrol was given last evening. Greater than 50 minutes of time was spent seeing and evaluating the patient, determining recent medications and deciding on care plan. Thank you for the consultation - Time spent with patient Time with patient PN: 50 minutes Hospital Course Summary Disclaimer: The visit summary below is not to be considered part of the above Progress Note.
[2017-05-20] MEDS ORDERED: INSULIN ASPART 100unit/ml INJECTION SQ ONE (17:45)
[2017-05-20] MEDS: ATORVASTATIN 40 MG TABLET PO SCH (20:41)
--- NOTE | 2017-05-20 21:16 | Echocardiogram ---
DATE OF PROCEDURE May 20, 2017 This is a two-dimensional echo with spectral Doppler, color-flow and M-mode. It was obtained in a patient with [id number] myocardial infarction and coronary artery disease. Left atrial dimension is normal. Left ventricular end-diastolic dimension is normal. Left ventricular wall thickness is normal. LV systolic function is normal with ejection fraction of 74%. Right atrium is normal. Right ventricle is normal. Aortic root dimension is normal. Mitral valve is morphologically normal with mild mitral regurgitation. Aortic valve is a trileaflet structure with no stenosis. Trace of aortic insufficiency is present. Tricuspid valve shows mild tricuspid regurgitation with estimated pulmonary artery systolic pressure of 14. Pulmonary valve shows mild pulmonary insufficiency. There is no pericardial effusion. IMPRESSION 1. Normal LV systolic function with ejection fraction of 74%. 2. Mild mitral regurgitation. 3. Trace of aortic insufficiency. 4. Mild tricuspid regurgitation with estimated pulmonary artery systolic pressure of 14. 5. Mild pulmonary insufficiency. MTDD
[2017-05-21] MEDS: ACETAMINOPHEN 325 MG TABLET PO PRN (00:03)
[2017-05-21] MEDS: INSULIN ASPART 100unit/ml INJECTION SQ PRN ×3 (04:29→10:52)
[2017-05-21] MEDS: TICAGRELOR 90 MG TABLET PO SCH (06:20)
[2017-05-21] MEDS: LORATADINE 10 MG TABLET PO SCH (06:20)
[2017-05-21] MEDS: INSULIN ASPART 100unit/ml INJECTION SQ SCH ×2 (07:27→11:35)
[2017-05-21] MEDS: LISINOPRIL 20 MG TABLET PO SCH (08:30)
[2017-05-21] MEDS: ASPIRIN *EC* 81 MG TABLET PO SCH (08:30)
--- NOTE | 2017-05-21 11:35 | Discharge Summary ---
<Glenis Moncada - Last Filed: 05/22/17 11:27> Discharge Information Date of admission: 05/20/17 15:20 Anticipated date of discharge: 05/21/17 Attending Physician: Rafi Craven MD Primary care physician: Genevieve Johnston APRN Consults: 05/20/17 16:36 Physician Consult [CONS] Routine Consulting Provider: Rosalina Rice Reason For Exam: Diabetes hyperglycemia Ordering Provider has Notified Icu Rn: No - Discharge Diagnosis (1) Non-STEMI (non-ST elevated myocardial infarction) Status: Acute (2) Essential (primary) hypertension Status: Acute (3) Type 2 diabetes mellitus without complications Status: Acute (4) Mixed hyperlipidemia Status: Acute - Procedures Procedures: Date of Exam: 05/19/17 Type of Exam(s): CA heart cath LT DATE OF PROCEDURE May 19, 2017 The patient is a 52-year-old gentleman who was admitted with unstable angina/non -ST-elevation myocardial infarction and was referred for further evaluation by cardiac catheterization and possible intervention. Informed consent was obtained after explaining the procedure and the potential risks to the patient who agreed to proceed with the procedure. PROCEDURE 1. Left heart catheterization. 2. Coronary angiography. 3. Left ventriculography. 4. Primary stent of mid and proximal RCA using 3.0 x 8 and 3.5 x 18 drug- eluting Resolute [place] stents. 5. Right femoral angiography to visualize the vessel for closure device. 6. Successful Mynx deployment for hemostasis. TECHNIQUE He was prepped and draped in the usual sterile techniques. Conscious sedation was performed using Versed and fentanyl. 1% lidocaine was used for local anesthesia. Using modified Seldinger technique, arterial access was obtained into the right radial artery with placement of a 6-Greek arterial sheath. 3000 units of heparin, 300 mcg of nitroglycerin and 2.5 mg of verapamil were given through the arterial sheath. LEFT VENTRICULOGRAPHY Left ventriculography in single-plane CAUSEY shallow projection showed normal LV systolic function with ejection fraction of about 60% with no mitral regurgitation or gradient across the aortic valve. LVEDP was about 14. CORONARY ANGIOGRAPHY We were not able to engage into the left main through the right radial sheath, however we were able to engage into the right coronary artery which showed subtotal occlusion in mid segment and about 70% proximal stenosis. At the bifurcation of the PDA and posterolateral arteries there was about 80% stenosis extending into the posterolateral artery. Posterolateral artery was a small caliber vessel of about 2 mm. Since we were not able to engage into the ostium of the left main, therefore we changed our approach to femoral approach. 1% lidocaine was used for local anesthesia. Using modified Seldinger technique, arterial access was obtained into the right femoral artery with placement of a 6-Greek arterial sheath. Left coronary angiography showed left main free of significant lesions. Left anterior descending artery had irregularities with no stenosis greater than 30% . Diagonal also had irregularities of up to about 30% stenosis. Left circumflex artery mainly consisted of a large marginal which had about 90% proximal stenosis. After reviewing the images we decided to proceed with intervention on RCA. Additional 5000 units of heparin was administered. 180 mg of Brilinta was given orally. A 6-Greek AL-1 with side holes was advanced to the ostium of the right coronary artery. A Whisper wire was used to cross the lesion into the distal RCA. A 3.0 x 8 mm drug-eluting Resolute Kb stent was delivered to the mid RCA and deployed by inflating the balloon to 16 atmospheres. Next, we used a 3.5 x 18 drug-eluting Resolute Kb stent which was delivered to the proximal RCA and deployed by inflating the balloon to 18 atmospheres. Next, angiogram showed excellent results with no residual stenosis. We did not wish to proceed with any further intervention at the bifurcation into the posterolateral artery due to small caliber nature of the vessel. The patient tolerated the procedure well with no complications. Right femoral angiography showed patent common femoral, proximal SFA and profunda and therefore Mynx was used for hemostasis. IMPRESSION 1. Normal LV systolic function with ejection fraction of 60%. 2. Coronary artery disease as described above. 3. Successful primary stent of mid and proximal RCA using 3.0 x 8 and 3.5 x 18 drug-eluting Resolute [place] stents. 4. Successful Mynx deployment for hemostasis. PLAN Will continue dual antiplatelet therapy at least for year and continue risk modification. One might consider obtuse marginal percutaneous intervention in the future using femoral approach. - Laboratory Labs: 05/21/17 08:27 05/21/17 08:27 Abnormal Lab Results 05/20/17 05/20/17 05/20/17 14:06 15:12 16:04 WBC RBC Hgb Hct MCV MCH MCHC RDW Std Deviation Plt Count MPV Turbidity Sodium Potassium Chloride Carbon Dioxide Anion Gap BUN Creatinine GFR Calculation BUN/Creatinine Ratio Glucose Glucometer 199 262 Calculated Osmolality Calcium Magnesium Icterus Index Troponin I 0.504 H Specimen Hemolysis < 15 05/20/17 05/20/17 05/21/17 16:24 20:33 04:23 WBC RBC Hgb Hct MCV MCH MCHC RDW Std Deviation Plt Count MPV Turbidity Sodium Potassium Chloride Carbon Dioxide Anion Gap BUN Creatinine GFR Calculation BUN/Creatinine Ratio Glucose Glucometer 278 263 294 Calculated Osmolality Calcium Magnesium Icterus Index Troponin I Specimen Hemolysis 05/21/17 05/21/17 05/21/17 06:18 08:27 08:27 WBC 14.2 H RBC 4.66 Hgb 14.5 Hct 42.7 MCV 91.6 MCH 31.1 MCHC 34.0 RDW Std Deviation 39.8 Plt Count 285 MPV 8.6 L Turbidity < 20 Sodium 139 Potassium 3.9 Chloride 103 Carbon Dioxide 26 Anion Gap 10 BUN 18.0 Creatinine 0.7 L GFR Calculation 118 BUN/Creatinine Ratio 26 Glucose 224 H Glucometer 267 Calculated Osmolality 277 Calcium 8.9 Magnesium 1.9 Icterus Index < 2 Troponin I 0.295 H Specimen Hemolysis < 15 05/21/17 10:45 WBC RBC Hgb Hct MCV MCH MCHC RDW Std Deviation Plt Count MPV Turbidity Sodium Potassium Chloride Carbon Dioxide Anion Gap BUN Creatinine GFR Calculation BUN/Creatinine Ratio Glucose Glucometer 192 Calculated Osmolality Calcium Magnesium Icterus Index Troponin I Specimen Hemolysis History of Present Illness HPI: Lauri is a 52 year old male who presented to the ED with left substernal chest pain for the last 2 days. Pain develops with exertion and resolves at rest. Pain goes into left shoulder and he becomes short of breath. Denies nausea or vomiting, diaphoresis. Troponin resulted at 0.164, and EKG showed SR and was essentially normal. He was examined in the ED by Dr. Craven and it was felt that due to symptoms and elevated troponin we should proceed with left heart cath immediately. He denies recent illness, fever, cough, sore throat, dyspnea, palpitations, N/V/D, or dysuria. Hospital Course This is a general summary of the patient's hospital course. For more details refer to the complete medical record. Hospital course: 05/19/17 Chest pain last 2 days, worse with exertion, improved with rest - Initial troponin 0.164 - EKG essentially normal - NPO for left heart cath now Stents x 2 to RCA. - Aspirin and Brilinta for dual antiplatelet therapy - Metoprolol 25mg po BID - Change enalapril to lisinopril - Change pravastatin to atorvastatin 05/20/17 Continue to monitor cardiac telemetry and trend serial troponin, still trending upwards. Consult hospitalist for their recommendations regarding hyperglycemia, We appreciate your assistance. Time spent with patient: 25 - 35 minutes DVT Prophylaxis: SCD's Exam Vital signs: Temperature 97.6 F 05/21/17 07:00 Pulse Rate 76 05/21/17 07:41 Respiratory Rate 16 05/21/17 07:00 Blood Pressure 148/75 H 05/21/17 07:00 Pulse Oximetry 100 05/21/17 07:00 - Constitutional no acute distress, cooperative - Routine HEENT Exam Head: Present: normocephalic ENT: Present: mucous membranes moist - Routine Neck Exam Absent: JVD, carotid bruit - Routine Chest/Breast/Axilla Exam Chest wall: Absent: tenderness - Routine Respiratory Exam Present: CTA bilaterally. Absent: rales, wheezes - Routine Cardiovascular Exam Present: RRR, no murmur - Routine Abdominal Exam Present: soft, normoactive bowel sounds - Routine Extremities Exam Present: no edema - Routine Skin Exam Present: intact, dry, warm - Routine Neurological Exam Present: alert, oriented X3 - Routine Psychiatric Exam Present: normal affect, normal thought process Results 05/21/17 08:27 05/21/17 08:27 Cardiac Enzymes 05/20/17 05/21/17 Range/Units 16:04 08:27 Troponin I 0.504 H 0.295 H (0-0.12) ng/ml CBC 05/21/17 Range/Units 08:27 WBC 14.2 H (4.5-11.0) T/MM3 RBC 4.66 (4.50-5.90) M/MM3 Hgb 14.5 (13.5-17.5) GM/DL Hct 42.7 (41-53) % Plt Count 285 (130-400) T/MM3 Comprehensive Metabolic Panel 05/21/17 Range/Units 08:27 Sodium 139 (134-144) MEQ/L Potassium 3.9 (3.6-5) MEQ/L Chloride 103 (98-107) MEQ/L Carbon Dioxide 26 (22-30) MEQ/L BUN 18.0 (9-20) MG/DL Creatinine 0.7 L (0.8-1.5) MG/DL Glucose 224 H (75-110) MG/DL Calcium 8.9 (8.4-10.2) MG/DL Intake and Output 05/20/17 05/21/17 05/21/17 22:59 06:59 14:59 Intake Total 400 / 400 400 / 400 240 / 240 Output Total 300 / 300 625 / 625 Balance 100 / 100 -225 / -225 240 / 240 Intake: Oral 400 / 400 400 / 400 240 / 240 Output: Urine 300 / 300 625 / 625 Other: Urine Appearance Clear Clear Urine Color Yellow Yellow Urine Odor Normal # Voids 1 Weight 201 lb 4.513 oz Patient Weight 05/22/17 06:59 Weight 201 lb 4.513 oz - Imaging and Cardiology Imaging & Cardiology Narrative: Date of Exam: 05/20/17 Type of Exam(s): US echo doppler complete DATE OF PROCEDURE May 20, 2017 This is a two-dimensional echo with spectral Doppler, color-flow and M-mode. It was obtained in a patient with [id number] myocardial infarction and coronary artery disease. Left atrial dimension is normal. Left ventricular end-diastolic dimension is normal. Left ventricular wall thickness is normal. LV systolic function is normal with ejection fraction of 74%. Right atrium is normal. Right ventricle is normal. Aortic root dimension is normal. Mitral valve is morphologically normal with mild mitral regurgitation. Aortic valve is a trileaflet structure with no stenosis. Trace of aortic insufficiency is present. Tricuspid valve shows mild tricuspid regurgitation with estimated pulmonary artery systolic pressure of 14. Pulmonary valve shows mild pulmonary insufficiency. There is no pericardial effusion. IMPRESSION 1. Normal LV systolic function with ejection fraction of 74%. 2. Mild mitral regurgitation. 3. Trace of aortic insufficiency. 4. Mild tricuspid regurgitation with estimated pulmonary artery systolic pressure of 14. 5. Mild pulmonary insufficiency. 05/21/17 11:29 05/21/17 11:30 Date of Exam: 05/19/17 Ordering Provider: Haley Rashid APRN Type of Exam(s): XR chest 2V Reason for Exam(s): chest pain Indication: chest pain Procedure: XR chest 2V: Encounter: Initial Comparison: None Technique: PA and lateral radiographs of the chest were obtained. Findings: Lungs and airways: Normal lung volumes. No focal airspace consolidation. Normal pulmonary vasculature. Pleura: No pleural effusion or pneumothorax. Heart and mediastinum: The cardiomediastinal silhouette and great vessels are within normal limits. Osseous structures and soft tissues: No acute osseous abnormality is seen. Impression: No acute cardiopulmonary process. Discharge Plan - Med Rec/Dispo Referrals/Follow Up: Rafi Craven MD [Physician] - 06/03/17 1:30 pm Genevieve Johnston APRN [Family Provider] - [place] [facility] [place] [facility] [place] Prescriptions: New Atorvastatin [Lipitor] 40 mg PO HS #30 tab Lisinopril [Prinivil] 20 mg PO DAILY #30 tab Ticagrelor [Brilinta] 90 mg PO Q12H #180 tab Metoprolol Tartrate [Lopressor] 25 mg PO BIDWM #60 tab Continue Insulin Glargine,Hum.rec.anlog [Toujeo Solostar] 41 unit SQ AMI #0 Aspirin [Aspir 81] 81 mg PO DAILY #30 tab Insulin Aspart [NovoLOG] 13 unit SQ WB Loratadine [Claritin] 10 mg PO DAILY Insulin Aspart [NovoLOG] 16 unit SQ WS Insulin Aspart [NovoLOG] 14 unit SQ WL Discontinued Enalapril Maleate 10 mg PO DAILY #0 tab Pravastatin [Pravachol] 20 mg PO DAILY - Disposition 01 Discharged Home, Self-Care - Dismissal Complete Discharge Instructions are:: Incomplete <Rafi Craven - Last Filed: 05/22/17 12:07> Discharge Information Date of admission: 05/20/17 15:20 Attending Physician: Rafi Craven MD Primary care physician: Genevieve Johnston APRN Consults: 05/20/17 16:36 Physician Consult [CONS] Routine Consulting Provider: Rosalina Rice Reason For Exam: Diabetes hyperglycemia Ordering Provider has Notified Icu Rn: No - Discharge Diagnosis (1) Non-STEMI (non-ST elevated myocardial infarction) Status: Acute (2) Essential (primary) hypertension Status: Acute (3) Type 2 diabetes mellitus without complications Status: Acute (4) Mixed hyperlipidemia Status: Acute - Laboratory Labs: 05/21/17 08:27 05/21/17 08:27 Hospital Course This is a general summary of the patient's hospital course. For more details refer to the complete medical record. Exam Vital signs: Temperature 97.4 F 05/21/17 12:25 Pulse Rate 78 05/21/17 12:25 Respiratory Rate 18 05/21/17 12:25 Blood Pressure 114/72 05/21/17 12:25 Pulse Oximetry 97 05/21/17 12:25 Results 05/21/17 08:27 05/21/17 08:27 Attestation Narriative - Attestation Attestation Narrative: 05/22/17 12:07 Recommendation After examining the patient I agree with the above assessment. I am involved in the formulation of the patient's plan of care.
[2017-05-21 12:36] VITALS: BP 114/72; PULSE 78; RESP 18; TEMP 97.4; O2SAT 97
--- NOTE | 2017-05-21 13:50 | Progress Note ---
- Date 05/21/17 Subjective: The patient was seen this morning at committee by his . Blood sugars are a little better controlled this morning than they were yesterday. He has had no hypoglycemia. He states he's been limiting his food intake to help control his blood sugars. He complains of some nausea and epigastric pain. He states he feels like there is an empty sensation in his stomach. He thinks he might be hungry. He had a brief episode of chest discomfort associated with his nausea this morning but that has not recurred. He is breathing well. He had some loose stools during this hospitalization, but states it was not diarrhea. Objective Vital signs: Temperature 97.4 F 05/21/17 12:25 Pulse Rate 78 05/21/17 12:25 Respiratory Rate 18 05/21/17 12:25 Blood Pressure 114/72 05/21/17 12:25 Pulse Oximetry 97 05/21/17 12:25 Height/Weight/BMI: Weight 91.3 kg Comments: GEN-alert, oriented, no acute distress CV-regular rate and rhythm CHEST-clear to auscultation bilaterally ABD-soft, nontender, nondistended with positive bowel sounds -no Silva EXT-no edema NEURO-no focal deficits Results - Labs CBC & Chem 7: 05/21/17 08:27 05/21/17 08:27 Assessment and Plan (1) Type 1 diabetes Current visit: Yes Status: Acute (2) Steroid-induced hyperglycemia Current visit: Yes Status: Acute Assessment and Plan: Impression Type 1 diabetes-well controlled at home per patient Hyperglycemia since admission-likely secondary to stress and Solu-Medrol given at time of heart catheter for history of iodine allergy Non-ST elevation IL, troponin is trending down Hypertension-fair control History of hyperlipidemia Mild nausea, mild abdominal discomfort Plan Regarding his diabetes, I think the elevated blood sugars should improve as the steroids get out of his system. He has managed his blood sugars fairly well in the past per report. I would have him use his usual insulin dosages and follow his sliding scale for hyperglycemia once he goes home. Regarding his mild nausea and abdominal discomfort, I think this may be secondary to hunger. Would recommend that he eat a normal size lunch and see if his discomfort resolves. If he is still hungry, he can have a snack as well. Discussed with JACINTA Rincon for Dr. Craven and with the patient's nurse.. Hospital Course Summary Disclaimer: The visit summary below is not to be considered part of the above Progress Note.
== END 2017-05-21 15:05 | disposition home or self-care (01) | DRG 247 ==
LOC: ED 15:12 → CATH 17:05 → SRG 17:20 → CATH 18:14 → SRG 18:15
PROVIDERS: ADMIT Internal Medicine Cardiovascular Disease; ATTEND Internal Medicine Cardiovascular Disease